=== PATIENT | male | born 1975 | race Two or more races ===

== ENCOUNTER 2025-08-11 14:31 | Emergency (ER) | payer OTHER ==
[~2025-08-11] VITALS: Ht 165.1 cm; Wt 81.0 kg
[2025-08-11 14:58] VITALS: TEMP 98.1
[2025-08-11] MEDS: PROPARACAINE HCL 0.5% 15 ML OPHTHALMIC SOLUTION OD ONE (15:50)
[2025-08-11] MEDS: FLUORESCEIN SODIUM 1 MG STRIP OD ONE (15:51)
[2025-08-11 19:52] VITALS: BP 121/77; PULSE 71; RESP 16; O2SAT 97
== END 2025-08-11 22:36 | disposition short-term general hospital (02) ==
LOC: EMS 14:31
DX: B02.30 Zoster ocular disease, unspecified (principal); H54.62 Unqualified visual loss, left eye, normal vision right eye; I10 Essential (primary) hypertension
CPT/HCPCS: 99285; J9035; Z7502; Z7610